=== PATIENT | female | born 1970 | race Caucasian/White ===

== ENCOUNTER 2019-10-17 05:32 | Observation (INO) | payer OTHER ==
[~2019-10-17 05:32] MED LIST: Buffered Lidocaine 1% SYRIN* 1 ML/SYRINGE INTRADERM ONE
[2019-10-17] MEDS ORDERED: Famotidine IV* 10 MG/ML 2 ML (20 mg) IV ONE (06:00)
[2019-10-17] MEDS ORDERED: Dexamethasone IV* 4 MG/ML 1 ML (4 MG) IV SLOW PU ONE (06:00)
[2019-10-17] MEDS ORDERED: Scopolamine 1.5 mg* PATCH TRANSDERM ONE (06:00)
[2019-10-17] MEDS ORDERED: Lactated Ringers 1000 ML Bag* 1,000 ML IV SCH (06:00)
[2019-10-17] MEDS ORDERED: Scopolamine 1.5 mg* PATCH ONE (06:06)
[2019-10-17] MEDS ORDERED: Famotidine IV* 10 MG/ML 2 ML (20 mg) ONE (06:06)
[2019-10-17] MEDS ORDERED: Dexamethasone IV* 4 MG/ML 1 ML (4 MG) ONE (06:06)
[2019-10-17] MEDS ORDERED: Bacitracin INJECTION* 50,000 UNITS ONE (07:14)
[2019-10-17] MEDS ORDERED: Lidocaine 1% w EPI 1:200,000* SDV 30 ML VIAL ONE (07:14)
[2019-10-17] MEDS ORDERED: Remifentanil* 2 MG VIAL ONE (07:16)
[2019-10-17] MEDS ORDERED: Lidocaine 2% PF * 5 ML VIAL ONE (07:16)
[2019-10-17] MEDS ORDERED: Propofol* 10 MG/ML 20 ML BTL ONE (07:16)
[2019-10-17] MEDS ORDERED: Midazolam* 1 MG/ML 5 ML VIAL (5 MG) ONE (07:16)
[2019-10-17] MEDS ORDERED: fentaNYL* 50 MCG/ML 2 ML VIAL (100 MCG VIAL) ONE ×3 (07:16→11:22)
[2019-10-17] MEDS ORDERED: Succinylcholine* 20 MG/ML 10 ML VIAL ONE (07:16)
[2019-10-17] MEDS ORDERED: HYDROcodone/ACETAMIN 5-325 MG* 1 TAB PO PRN ×2 (07:41→11:19)
[2019-10-17] MEDS ORDERED: PROCHLORPERAZINE INJ 5 MG/ML 2 ML VIAL IV PRN (07:41)
[2019-10-17] MEDS ORDERED: Morphine 4 MG/ML VIAL (1 ml) 4 MG/ML VIAL IV PRN (07:41)
[2019-10-17] MEDS ORDERED: oxyCODONE/Acetamin 5/325 MG* TAB PO PRN (07:41)
[2019-10-17] MEDS ORDERED: Naloxone* 0.4 MG/ML 1 ML VIAL IV PRN (07:41)
[2019-10-17] MEDS ORDERED: Propofol* 500 MG/50 ML BTL ONE (08:28)
[2019-10-17] MEDS ORDERED: Phenylephrine 40 MCG/ML SYRINGE ONE (09:11)
[2019-10-17] MEDS ORDERED: Rocuronium* 10 MG/ML VIAL ONE (09:16)
[2019-10-17] MEDS ORDERED: Neostigmine Methylsulfate* 1 MG/ML 10 ML VIAL (1 mg/ml) ONE (10:17)
[2019-10-17] MEDS ORDERED: Glycopyrrolate IV* 0.2 MG/ML 1 ML VIAL ONE (10:17)
[2019-10-17] MEDS ORDERED: Ondansetron INJ* 2 MG/ML VIAL ONE (10:27)
[2019-10-17] MEDS: fentaNYL* 50 MCG/ML 2 ML VIAL (100 MCG VIAL) IV PRN ×4 (11:00→11:44)
[2019-10-17] MEDS ORDERED: Magnesium Hydroxide LIQ* 30 ML UDC PO PRN (11:19)
[2019-10-17] MEDS ORDERED: Ondansetron INJ* 2 MG/ML VIAL IV PRN (11:19)
[2019-10-17] MEDS ORDERED: Acetaminophen TAB* 325 MG PO PRN (11:19)
[2019-10-17] MEDS ORDERED: oxyCODONE/Acetamin 5/325 MG* TAB ONE (11:22)
[2019-10-17] MEDS ORDERED: Labetalol IV* 5 MG/ML 20 ML VIAL ONE (11:52)
[2019-10-17] MEDS ORDERED: Morphine INJ* 2 MG/ML 1 ML SYRINGE (TWO MG - NEW SYRINGE VERSION) ONE (14:27)
[2019-10-17] MEDS ORDERED: Morphine INJ* 2 MG/ML 1 ML SYRINGE (TWO MG - NEW SYRINGE VERSION) IV PRN (14:37)
[2019-10-17] MEDS: HYDROcodone/ACETAMIN 5-325 MG* 1 TAB PO PRN ×2 (15:17→20:19)
--- NOTE | 2019-10-17 18:22 | PN ---
Progress Note - Progress Note Date of Service: 10/17/19 SOAP: Subjective: []Patient on regular floor. Tolerated procedure well today. Ambulated. Voids. Feels very well. Objective: []VSS, Afebrile MJ Wound s,c,d AAOx3, LEILA, CN II-XII grossly intact Motor 5/5 all extremities Sensory grossly intact to light touch Assessment: []48 yof POD#0 ACDF C5-6 Plan: []Monitor VS, Neurochecks Encourage ambulation Keep MJ collar on. C spine XR in am. Dc planning in am. Full instructions were given. No lifting, No bending, No driving. Keep incision dry. May shower in two days. No baths, Appreciate IM care. Harriet Novoa MD
--- NOTE | 2019-10-17 18:24 | OP ---
OPERATIVE REPORT: DATE OF OPERATION: 10/17/19 DATE OF : 74 SURGEON: Michael Novoa MD CONSULTANT ELECTRONICS: RAJAT Gorman The case was done with the assistance of RAJAT because of the complexity of the case. ANESTHESIA: General. PRE-OP DIAGNOSES: 1. Degenerative disk disease. 2. Instability. 3. Cervical myelopathy. POST-OP DIAGNOSES: 1. Degenerative disk disease. 2. Instability. 3. Cervical myelopathy. OPERATIVE PROCEDURE: The patient underwent anterior cervical diskectomy and fusion at C5-6 with PEEK interbody cage, DBX, plate and screws with intraoperative monitoring. ESTIMATED BLOOD LOSS: 10 cc. COMPLICATIONS: None. SUMMARY: The patient is a very pleasant 48-year-old female with complaints of neck pain radiating to the upper extremities with signs of early myelopathy with MRI findings consistent with degenerative disk disease at C5-6 with instability in the flexion and extension views. The patient after failing conservative treatment modalities was offered the option of surgical intervention. After explaining the expectations, limitations, and possible complications of the procedure to the patient and her family including her and her children with complications including, but not limited to bleeding, infection, risk of injury to adjacent structures, coma, paralysis, , need for additional procedures, anesthesia risks, stroke, blindness, cancer, instability, hardware failure, adjacent level disease, pseudoarthrosis, recurrent laryngeal nerve injury, spinal fluid leak, injury to the esophagus or trachea, recurrent laryngeal nerve paralysis, Oniel syndrome, need for tracheostomy or gastrostomy, need for prolonged ICU stay, prolonged hospitalization, prolonged rehabilitation, deep venous thrombosis, pulmonary embolism; the patient was agreeable to proceed with surgery and informed consent was obtained. The patient understood that her condition may not improve and in fact may get worse after surgery and that she may need to have additional procedures in the future. She also understood that operative plan may be modified according to intraoperative findings and conditions and that the case may be abandoned or done in more than 1 stages and that she may require prolonged hospitalization, prolonged ICU stay, or prolonged rehabilitation. DESCRIPTION OF PROCEDURE: The patient was brought to the operating room and was placed under general anesthesia by the anesthesia team. She was carefully positioned supine on the operative table and all bony prominences were meticulously padded. Her skin was prepped and draped in the standard fashion. After appropriate surgical pause and patient identification, right transverse paramedian incision was marked on the skin with assistance of intraoperative fluoroscopic imaging over the C5-6 disk space. The skin was infiltrated with local anesthetic and a #10 surgical blade was used to incise the skin. The incision was then deepened with Bovie cautery and the skin was gently undermined with tenotomy scissors. Self-retaining retractors were introduced into the field. Then, the platysma was gently elevated and divided with tenotomy scissors and gently undermined. Self-retaining retractors were introduced further into the field and the plane between the medial border of the sternocleidomastoid and the medial structures was gently developed. After identifying the anterior part of the vertebral column and the prevertebral fascia was gently divided, a localizing needle was used to localize the appropriate surgical level with intraoperative fluoroscopic imaging. Self- retaining retractors [place] were introduced further into the field and the [place] pins were placed at the vertebral body of C5 and C6. Of note, Apfelbaum maneuver was performed during the insertion of the self-retaining retractors into the field. Then, a diskectomy was performed under microscopic magnification after incising the annulus fibrosus with a #15 surgical blade. The diskectomy and disk space preparation was carried out with use of pituitary rongeurs, Kerrison punches, curettes, and high-speed drill. The posterior longitudinal ligament was then gently identified and divided with #1 Kerrison punches. Significant degeneration of the disk was identified as well as hypertrophy of the uncovertebral joint. Foraminotomies were performed, and then after appropriate sizing of the disk space, an 8 mm PEEK interbody cage from [employer] was inserted after being filled with locally harvested bone graft during the diskectomy phase and DBX putty. A Zevo NeoStemtronic 17 mm plate was then inserted after removing the [place] pins and secured in place with 3.5 x 13 mm titanium screws. Intraoperative fluoroscopic imaging confirmed excellent placement of all hardware. After the self-retaining retractors were removed, confirmation of excellent hemostasis, copious irrigation and meticulous inspection, the wound was closed by layers. Meticulous hemostasis, copious irrigation, and meticulous inspection was also performed prior to insertion of the intervertebral cage. The wound was then closed by layers with 2-0 interrupted Vicryl sutures to approximate the platysma and inverted interrupted 2-0 Vicryl sutures to approximate the subcutaneous tissue. The skin was covered with Dermabond. At the end of the procedure, all counts were reported to be correct. The patient remained hemodynamically stable throughout the case. Intraoperative electrophysiological monitoring was stable throughout the case. The patient was then extubated and was transferred to Recovery in excellent condition. [id number]/[facility] #: [id number] [facility] HOSPITALRoddy
--- NOTE | 2019-10-17 19:14 | CONS ---
CC: Dr. Mcqueen; Dr. Novoa; Dr. Lizeth Cat * CONSULTATION REPORT: DATE OF CONSULT: 10/17/19 PRIMARY CARE PROVIDER: Dr. Mcqueen. REQUESTING PHYSICIAN IN CONSULTATION: Dr. Novoa. ATTENDING PHYSICIAN: Dr. Lizeth Cat (dictated by CELINE Klein). REASON FOR CONSULT: Co-medical management. HISTORY OF PRESENT ILLNESS: Ms. Queen is a 48-year-old female with a past medical history of anxiety, who presented to [facility] today for an elective C5-C6 cervical decompression and fusion due to degenerative disk disease at C5-C6. The patient is seen postoperatively in her bed on surgical short stay. She rates her pain as a 5/10 right now, but states she is relatively comfortable. She has an MJ collar in place. At this time, she complains of sore throat and notes that she has had decreased appetite and occasional diarrhea for the last few weeks and attributes this to anxiety regarding the surgery. She admits to a 5 pound weight loss in the last 3 months. She complains of bilateral shoulder pain, which is intermittent and baseline for the patient. PAST MEDICAL HISTORY: Anxiety. PAST SURGICAL HISTORY: Tonsillectomy, nephrolithiasis. HOME MEDICATIONS: Bupropion HCl 200 mg p.o. b.i.d. DRUG ALLERGIES: No known drug allergies. FAMILY HISTORY: Father of a massive ND at the age of 41. Mother has history of hypertension and clotting disorder. The patient also has a brother with a clotting disorder. No family history of cancer, CVA, diabetes. SOCIAL HISTORY: The patient quit smoking approximately 15 years ago. Prior to that, she smoked 1 to 2 cigarettes per day for about 8 years. She drinks rarely , less than weekly. She works at [employer] in [place]. She is , with 3 children. She lives alone with her . In the event that she is unable to make her own medical decisions, she has appointed her , Genaro Queen to be her surrogate decision maker. REVIEW OF SYSTEMS: A 14-point review of systems has been performed and all the pertinent positives and negatives are in the HPI. All other systems are negative. PHYSICAL EXAM: Vital Signs: Temperature 98.0 oral, heart rate 106, respiratory rate 18, oxygen saturation 96% on room air, blood pressure 136/72. General: Ms. Queen is a well-developed, well-nourished, middle-aged overweight white woman, who is sitting up in bed. She appears to be in no acute distress. She appears relatively comfortable. She has an MJ collar in place. HEENT: PERRL. EOMI. Extraocular movements are grossly intact. Nonicteric sclerae. Hearing is grossly intact. Oral mucous membranes are moist. There are no lesions. Posterior pharynx is clear. Tongue is at midline. The palate elevates symmetrically. Cardiovascular: Regular rate and rhythm with S1, S2 present. No murmurs, rubs, clicks, or gallops. There is no JVD, no peripheral edema. Pulmonary: Symmetrical chest expansion without use of accessory muscles. Clear to auscultation bilaterally without rhonchi, rales , wheeze. No digital clubbing or cyanosis. Abdomen: Obese. Bowel sounds in all quadrants. Soft, nontender to palpation. Musculoskeletal: Full range of motion without pain or deformities. Neuro: The patient is awake. She is alert and oriented x3. Cranial nerves II through XII are grossly intact. ASSESSMENT AND PLAN: Ms. Queen is a 48-year-old female with a past medical history of anxiety, who presented to [facility] today for anterior cervical decompression and fusion of C5-C6. She will be admitted inpatient for: 1. C5-C6 cervical decompression and fusion. Management per Dr. Novoa. Out of bed with assistance. Plan for cervical spine x-ray in the morning. Continue MJ collar. 2. Anxiety. Continue home bupropion. 3. DVT prophylaxis: Per Neurosurgery SCDs, ambulation. 4. Code status: Full code. TIME SPENT: Approximately 30 minutes was spent on this hospitalist consultation , greater than half that time was spent with the patient obtaining history, performing physical, and reviewing the plan of care. The case has been reviewed with my attending Dr. Cat, who is in agreement with the plan of care. CELINE MANJARREZ [id number]/[facility] #: [id number] ELIECER
[2019-10-18] MEDS: HYDROcodone/ACETAMIN 5-325 MG* 1 TAB PO PRN ×3 (02:46→11:27)
[2019-10-18 06:55] LABS: ABS Basophils 0.1 10^3/ul (0-0.2); ABS Neutrophils 7.9 10^3/ul (1.5-7.7); Eosinophil % 0.2 %; Hematocrit 42 % (35-47); Hemoglobin 14.2 g/dL (12.0-16.0); Lymphocyte % 18.2 %; Mean Corpuscular HGB Conc 34 g/dL (31-36); Mean Corpuscular Hemoglobin 31 pg (27-31); Mean Corpuscular Volume 92 fL (80-97); Platelet Count 392 10^3/uL (150-450); Red Blood Count 4.54 10^6 /uL (3.70-4.87); Red Cell Distribution Width 13 % (10-15)
[2019-10-18 07:23] LABS: BUN/Creatinine Ratio 9.2 (8-20); Calcium 8.9 mg/dL (8.6-10.3); EGFR African American 98.7 (>60); EGFR Non-African American 81.6 (>60); Potassium 3.5 mmol/L (3.5-5.0)
--- NOTE | 2019-10-18 08:28 | PN ---
Progress Note - Progress Note Date of Service: 10/18/19 SOAP: Subjective: [No events ON. Tolerated procedure well yesterday. Ambulates. Voids. Tolerates Po well. Preop UEs numbness has resolved. Wants to go home. Feels very well. Objective: []VSS, Afebrile MJ Wound s,c,d AAOx3, LEILA, CN II-XII grossly intact Motor 5/5 all extremities Sensory grossly intact to light touch Assessment: []48 yof POD#1 ACDF C5-6 Plan: []Monitor VS, Neurochecks Encourage ambulation Keep MJ collar on. C spine XR this am. Dc planning today. Full instructions were given. No lifting, No bending, No driving. Keep incision dry. May shower in two days. No baths, Appreciate IM care. Harriet Novoa MD
[2019-10-18] MEDS ORDERED: buPROPion SR TAB.SR* 200 MG PO SCH (09:00)
[2019-10-18 11:13] VITALS: BP 136/82
--- NOTE | 2019-10-18 13:14 | DS ---
CC: Dr. Mcqueen; Dr. Novoa * DISCHARGE SUMMARY: DATE OF ADMISSION: 10/17/19 DATE OF DISCHARGE: 10/18/19 PRIMARY CARE PROVIDER: Dr. Mcqueen. OTHER PROVIDERS: Dr. Novoa. ATTENDING PHYSICIAN: Dr. Lizeth Cat * (dictated by CELINE Klein). PRIMARY DIAGNOSES: 1. Degenerative disk disease, C5-C6. 2. Status post anterior cervical diskectomy and fusion, C5-C6, performed on 10/24. SECONDARY DIAGNOSES: Anxiety. HISTORY OF PRESENT ILLNESS/HOSPITAL COURSE: Ms. Queen is a 49-year-old female with past medical history of anxiety, who presented to [facility] on 10/17/19 for an anterior cervical diskectomy and fusion of C5-C6 due to degenerative disk disease, cervical myelopathy, and instability. This was performed by Dr. Novoa. She was then observed overnight. She tolerated the procedure well. Pain management was achieved with [place], of which a 5 day supply will be ordered at discharge. A cervical x-ray was performed on the day of discharge. Dr. Novoa reviewed this and was satisfied and agrees with discharge today. He has provided discharge instructions which are outlined at the bottom of this discharge summary. Ms. Queen will follow up with Dr. Novoa in approximately 1 week. At the time of discharge, she denies paresthesias in bilateral arms which she states she has had for years intermittently. She does note a "burning" sensation across the shoulders and neck which is intermittent and chronic for her. She had previously complained of weakness in bilateral upper extremities and believes that her strength is the same as prior to surgery. She rates her pain as 6/10 currently but notes that it is well controlled with oral narcotic pain medication. Ms. Queen is stable for discharge to home. PHYSICAL EXAMINATION: Vital signs: Temperature 98.2, oral, heart rate 90, respiratory rate 18, oxygen saturation 95% on room air, blood pressure 136/82. General: Ms. Queen is a well-developed, well-nourished, overweight, middle- aged white woman, who is sitting up in her chair with an MJ collar in place. She appears notably comfortable and in no acute distress. She is pleasant and cooperative. HEENT: PERRL. EOMI. Nonicteric sclerae. Hearing is grossly intact. Oral mucous membranes are moist. Pharynx is clear without lesions. Tongue is at midline. Palate elevates symmetrically. Cardiovascular: Regular rate and rhythm with S1, S2 present. No murmurs, rubs, clicks, or gallops. No JVD or peripheral edema. Pulmonary: Symmetrical chest expansion without use of accessory muscles. Clear to auscultation bilaterally without rhonchi, rales , or rubs. Abdomen: Soft and nontender to palpation. Bowel sounds normoactive. Musculoskeletal: Strength is equal, 5/5 bilaterally in upper and lower extremities. Equal banquet kitchen supervisor strength. There is a dressing to the anterior aspect of the neck that is clean, dry, and intact. MJ collar is in place. Neuro: The patient is awake. She is alert and oriented x3. Cranial nerves II through XII are grossly intact. She is able to move all of her extremities. DISCHARGE MEDICATIONS: Home medications: 1. Bupropion 200 mg p.o. b.i.d. 2. Cholecalciferol 5000 units p.o. daily. New home medications: 1. Acetaminophen 650 mg p.o. q.4 hours p.r.n. pain; do not exceed 4 grams acetaminophen in 24 hours span of time when combined with the [place] tabs. 2. Hydrocodone/acetaminophen 5/325 one to two tabs p.o. q.4 hours p.r.n. pain, MDD 10; do not exceed 4 grams of Tylenol in 24 hours span of time. DISCHARGE PLANS AND INSTRUCTIONS: Ms. Queen is stable for discharge home. CONDITION: Good. DIET: Heart healthy. ACTIVITY: 1. MJ collar at all times. 2. No lifting, bending, driving. 3. May shower in 2 days, no bath. 4. Keep incision dry. 5. Continue ambulation. MEDICATIONS: 1. [place] 1 to 2 tabs p.o. q.4 hours p.r.n. pain, MDD 10 tabs. 2. May also use Tylenol p.r.n. pain. Do not exceed 4 grams of acetaminophen in 24 hours span of time. EDUCATION: 1. Follow up with Dr. Novoa as scheduled. 2. Return to the ER or nearest hospital for any signs of infection such as fever, chills, surgical site erythema or drainage. Return for chest pain, shortness of breath, high fever, chills, night sweats, dizziness, lightheadedness, loss of consciousness, or any other worrisome signs or symptoms. This is a summarized report of a complex medical history and hospital stay. For further details, please see the entire medical record. TIME SPENT: Approximately 30 minutes were spent on this discharge, greater than half that time was spent [id number] with the patient and her family discussing discharge plans and instructions. CELINE MANJARREZ [id number]/[facility] #: [id number] ELIECER
[2019-10-20] MEDS ORDERED: Scopolamine PATCH Remove* 1 NOTE MISC PATCH OFF ONE (06:00)
== END 2019-10-18 11:45 | disposition home or self-care (01) ==
LOC: OR 05:32 → SSU 11:19 → INTOOBSV 11:19
PROVIDERS: ADMIT Neurological Surgery; ATTEND Internal Medicine
DX: M50.322 Other cervical disc degeneration at C5-C6 level (principal); M50.01 Cervical disc disorder with myelopathy, high cervical region; M25.30 Other instability, unspecified joint; F41.9 Anxiety disorder, unspecified; Z79.899 Other long term (current) drug therapy; Z87.891 Personal history of nicotine dependence
CPT/HCPCS: 36415; 72040; 76000; 80048; 81025; 85025; 96374; 96375; 96376; A9270-GY; C1713; C1776; G0378; J0330; J1100; J2001; J2250; J2270; J2405; J2704; J2710; J3010